=== PATIENT | female | born 1980 | race African-American/Black ===

== ENCOUNTER 2019-09-12 12:10 | Emergency (ER) | payer MEDICAID, SELFPAY ==
[2019-09-09 09:41] VITALS: BMI 23.8
[2019-09-12 12:11] VITALS: BP 126/86; PULSE 73; RESP 16; TEMP 36.4; O2SAT 99; BMI 30.2
--- NOTE | 2019-09-12 12:29 | ED.DCSUM_ITS ---
History of Present Illness Chief Complaint: Female C/O Informant: Patient Narrative: Patient is a 39-year-old female who presents to the emergency department for vaginal discharge with foul odor. She is also having pain with intercourse. Her symptoms have been present over the past week and a half. She was treated with Flagyl approximately 1 month ago for suspected BV although they did not do any test at that time. He does have a history of herpes and just recently got over an outbreak. She denies any vaginal bleeding. She does not know if she is or not. She does not have any pain unless she is having intercourse. She is sexually active with one partner. He was recently tested and treated for STDs. She states that she was tested at the same time. She denies any systemic symptoms including fever/chills or nausea/vomiting. No change in bowel habits. She denies any urinary symptoms. Past Medical History - Allergies and Home Meds Allergies/Adverse Reactions: Allergies banana Allergy (Mild, Verified 09/12/19 12:13) UNKNOWN grass pollen Allergy (Mild, Verified 09/12/19 12:13) UNKNOWN house dust Allergy (Mild, Verified 09/12/19 12:13) UNKNOWN mold Allergy (Mild, Verified 09/12/19 12:13) UNKNOWN pollen extracts Allergy (Mild, Verified 09/12/19 12:13) UNKNOWN Penicillins [PCN] Allergy (Verified 09/12/19 12:13) PT UNSURE OF REACTION RAW HOOKS PEPPERS Allergy (Mild, Uncoded 09/12/19 12:13) UNKNOWN Primary Care Physician: NOT,DEFINED [NON-STAFF] - Prior records reviewed: Yes Past Medical History: - - Shingles, herpes Smoking Status: Current some day smoker Drugs: - - 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 Review of Systems General: Denies: Chills, Fever, Sweats Eyes: Denies: Visual changes - bilaterally, Diplopia ENT: Denies: Rhinorrhea, Sore throat Cardiovascular: Denies: Chest pain, Palpitations Respiratory: Denies: Dyspnea, Cough, Dyspnea on exertion Gastrointestinal: Reports: Abdominal pain - With intercourse. Denies: Nausea, Vomiting, Diarrhea Genitourinary: Denies: Dysuria, Hematuria, Frequency Musculoskeletal: Denies: Back pain, Extremity Pain Skin: Denies: Rash, Wounds Neurological: Denies: Headache, Weakness, Numbness Physical Exam Vital Signs/Narrative: Vital Signs Temp Pulse Resp BP Pulse Ox 09/12/19 12:11 97.5 F L 73 16 126/86 H 99 General: Well nourished, Well developed Head: Normocephalic, Atraumatic Eyes: Perrl, EOMI ENT: Moist mucous membranes Neck: Supple, Nontender Cardiovascular: Regular rate Respiratory: No distress Abdomen: Soft, Nontender, Nondistended Back: Nontender. Negative for: CVA tenderness Extremities: No edema Skin: Normal color, No rash Neurological: Alert, Oriented x3 Psychological: Normal affect, Normal Mood Diagnostic/Tx/Re-eval - Medical Decision Making Patient presents the emerge department for vaginal pain, discharge and foul odor. Upon arrival vital signs within normal and since she is nontoxic- appearing. Will do pelvic exam and test for STDs. Urinalysis also be obtained to evaluate for and UTI. Gonorrhea and Chlamydia test currently pending. Her trichomoniasis test was negative. Will treat with Flagyl for bacterial vaginosis as this has helped previously. She has an appointment with an FARM INSTRUCTOR this coming week. She is to keep this appointment. Warning signs and symptoms for which to return to the emergency department are reviewed. She otherwise is to follow-up with her PCP. She understands and is agreeable with this plan. ED Disposition - Plan for ED Patient: Disposition: Home or Assisted Living Diagnosis: Vaginal discharge Instructions: Vaginal Infection: Bacterial Vaginosis Prescriptions: metroNIDAZOLE [Flagyl] 500 mg PO Q12H #14 tab Transmission Status: Received by [facility] - [id number] Referrals: NOT,DEFINED [NON-STAFF] - Additional Instructions: Do not drink alcohol while taking this medication. Keep scheduled appointment with your FARM INSTRUCTOR.
[2019-09-12 12:46] LABS: Bacteria 0 SEEN /hpf (None Seen); Mucous, Urine 0 SEEN /hpf (<or=2+); Red Blood Cells-Urine 0 SEEN /hpf (0-5); White Blood Cells 0 SEEN /hpf (0-5)
[2019-09-12 12:51] LABS: Color, Urine Yellow (Yellow); Glucose, Dipstick Normal (Normal); Ketone-Dipstick Negative (Negative); Leukocyte Esterase-Dipstick Negative /ul (Negative); Nitrite-Dipstick Negative (Negative); Occult Blood-Urine Negative /ul (Negative); Protein-Dipstick Negative (Negative); Urine Bilirubin Dipstick Negative (Negative); Urine Clarity Sl. Cloudy (Clear); Urine Urobilinogen Normal (Normal)
[2019-09-12 13:01] LABS: Squamous Epithelial Cells - UA 0-5 SEEN /hpf (5-10)
[2019-09-12 13:39] LABS: Internal QC Validated? YES +Cl - CLEAR BKGD; Pregnancy, Urine Negative Negative
[2019-09-12 14:53] VITALS: RESP 18
[2019-09-12 15:31] LABS: Chlamydia Trachomatis by PCR Negative (Negative); Neisserai gonorrhoeae by PCR Negative (Negative); Probe Check PASS; Sample Adequacy Control PASS; Specimen Processing Control PASS
== END 2019-09-12 14:53 | disposition home or self-care (01) ==
PROVIDERS: Emergency Provider Emergency Medicine; PCP Internal Medicine
DX: N89.8 Other specified noninflammatory disorders of vagina (principal); F17.200 Nicotine dependence, unspecified, uncomplicated
CPT/HCPCS: 81001; 81025; 87210; 87491; 87591; 99282

== ENCOUNTER → 2019-10-07 | Outpatient (CLI) | payer MEDICAID, SELFPAY ==
[2019-10-07 15:05] VITALS: BMI 30.2
[2019-10-07 16:51] LABS: Absolute Neutrophil Count 1.5 X10^3/uL (2.0-7.7); Basophil# 0.02 X10^3/uL; Basophil% 0.4 % (0-1); Eosinophil# 0.31 X10^3/uL; Eosinophils% 6.4 % (0-5); Hematocrit 41.8 % (37-47); Hemoglobin 13.7 g/dL (12.0-15.0); Lymphocyte % 55.4 % (19-41); Mean Corp Hgb Conc 32.8 g/dL (32-36); Mean Corpuscular Volume 85.3 fL (81-99); Mean Platelet Vol. 9.5 fl (6.2-12.0); Monocyte# 0.37 X10^3/uL; Monocyte% 7.6 % (0-10); NRBC Flagged by Analyzer 0 % (0-5); Neutrophil # 1.46 X10^3/uL (2.7-7.7); Platelet Count 267 K/mm3 (150-450); RBC Distribution Width CV 12.6 % (11.6-14.6); RBC Distribution Width SD 38.9 fl (35.1-43.9); White Blood Count 4.9 K/mm3 (4.4-11.0)
[2019-10-07 17:11] LABS: ALB/GLOB Ratio 0.9 RATIO (0.9-2.4); AST(SGOT) 18 U/L (15-37); Alanine Aminotransfer ALT/SGPT 36 U/L (13-56); Albumin, Serum 3.4 g/dL (3.2-5.0); Alkaline Phosphatase 48 U/L (45-117); Anion Gap 7 (5-15); BUN 14 mg/dL (7-18); BUN/Creat Ratio 13.5 RATIO (10-20); Chloride 106 mmol/L (98-107); Creatinine, Serum 1.04 mg/dL (0.55-1.02); EST Glomerular Filtration Rate 63 mL/min (>60); Est Glom Filt Rate - Afr Amer 76 mL/min (>60); Globulin 3.7 g/dL (2.2-4.2); Glucose 103 mg/dL (74-106); Protein, Total 7.1 g/dL (6.4-8.2); Sodium Level 138 mmol/L (136-145); T4 Free Direct 1.15 ng/dL (0.76-1.46); Thyroid Stim Hormone (TSH) 0.79 uIU/mL (0.358-3.74)
== END | disposition home or self-care (01) ==
LOC: BIMLAB 15:43
PROVIDERS: PCP Internal Medicine; Referring Provider Internal Medicine; Visit Provider Internal Medicine
DX: F32.9 Major depressive disorder, single episode, unspecified (principal); F41.9 Anxiety disorder, unspecified; R53.81 Other malaise; R53.83 Other fatigue
CPT/HCPCS: 36415; 80053; 84439; 84443; 85025

== ENCOUNTER → 2019-10-10 | Outpatient (CLI) | payer MEDICAID, SELFPAY ==
[2019-10-10 13:33] VITALS: BMI 30.2
[2019-10-13 09:04] LABS: Chlamydia By Nucleic Acid AMP Negative (Negative)
[2019-10-13 09:16] LABS: Gonococcus By Nucleic Acid AMP Negative (Negative)
[2019-10-14 17:56] LABS: HPV APTIMA, High Risk Negative (Negative)
== END | disposition home or self-care (01) ==
LOC: LABSPEC 16:53
PROVIDERS: Referring Provider Obstetrics & Gynecology; Visit Provider Obstetrics & Gynecology
DX: N89.8 Other specified noninflammatory disorders of vagina (principal); Z12.4 Encounter for screening for malignant neoplasm of cervix
CPT/HCPCS: 87070; 87205; 87491; 87591; 87624; 88175; G0145